=== PATIENT | female | born 1970 | race Caucasian/White ===

== ENCOUNTER 2020-12-18 18:54 | Inpatient (IN) | payer OTHER ==
[~2020-12-18] VITALS: Ht 162.6 cm; Wt 122.5 kg
[2020-12-18 19:14] VITALS: BP 155/100
[2020-12-18] MEDS ORDERED: LISINOPRIL10 MG PO (19:18)
[2020-12-18] MEDS ORDERED: METFORMIN HCL500 M3 PO (19:18)
[2020-12-18] MEDS ORDERED: WELLBUTRIN 100100 MG PO (19:19)
[2020-12-18] MEDS ORDERED: SERTRALINE HCL100 MG PO (19:19)
[2020-12-18] MEDS ORDERED: ADDERALL 10 MG10 MG PO (19:19)
[2020-12-18 21:50] LABS: HEMATOCRIT 45.6 % (37.0-47.0); HEMOGLOBIN 15.4 gm/dL (12.0-15.0); MCH 29.4 pg (26.0-34.0); MCHC 33.9 g/dL (28.0-37.0); MCV 86.8 fL (80.0-100.0); MPV 9.1 fl. (7.2-11.1); NUCLEATED RBCS 0 /100WBC; PLATELET COUNT* 174 thou/uL (150-400); RBC 5.25 mil/uL (4.20-5.00); RDW-CV 15.3 % (10.5-14.5); WBC 19.2 thou/uL (4.0-11.0)
[2020-12-18 22:00] LABS: CALCIUM 9.2 mg/dL (8.5-10.1); CREATININE 1.4 mg/dL (0.6-1.3); POTASSIUM 3.7 mmol/L (3.5-5.1)
[2020-12-18 22:06] LABS: ALBUMIN 3.9 g/dL (3.4-5.0); TOTAL BILIRUBIN 0.8 mg/dL (<0.1-1.0); TOTAL PROTEIN 8.2 g/dL (6.4-8.2)
[2020-12-18 22:07] LABS: URINE BILIRUBIN NEGATIVE (Negative); URINE BLOOD 3+ (Negative); URINE CLARITY CLEAR; URINE COLOR YELLOW; URINE GLUCOSE-RANDOM TRACE (Negative); URINE KETONES NEGATIVE (Negative); URINE LEUKOCYTES-REFLEX 1+ (Negative); URINE NITRITE-REFLEX NEGATIVE (Negative); URINE PROTEIN 1+ (Negative); URINE SPECIFIC GRAVITY >= 1.030 (1.005-1.030); URINE UROBILINOGEN 0.2 E.U./dl (0.2-1.0)
[2020-12-18 22:20] LABS: SQUAMOUS >10 Many /LPF (0-3); URINE WBC-REFLEX 6-15 Few /HPF (0-5)
[2020-12-18 22:21] LABS: BACTERIA-REFLEX 1-9 Few /HPF (None Seen); CASTS None Seen /LPF (None Seen); CRYSTALS None Seen /LPF (None Seen); URINE RBC 3-10 Few /HPF (0-2)
[2020-12-18 22:40] LABS: ABSOLUTE LYMPHOCYTES 1.9 thou/uL (0.8-5.3); ABSOLUTE MONOCYTES 0.4 thou/uL (0.0-1.2); ABSOLUTE NEUTROPHILS 16.9 thou/uL (1.6-8.1); PLATELET ESTIMATE ADEQUATE
[2020-12-19] VITALS (43 sets, daily range): BP systolic 78–147; BP diastolic 32–85
--- NOTE | 2020-12-19 08:01 | NUR ---
PATIENT ARRIVED ON FLOOR FROM ER ABOUT 0630. PATIENT ADMISSION HISTORY AND ASSESSMENT WERE COMPLETED DOWN IN THE ER. PATIENT HAD A CRITICAL LACTIC ACID OF 4.[address] TRAYLOR IN THE ER WAS NOTIFIED SINCE REGGIE HAD JUST ARRIVED ON THE FLOOR. FLUID BOLUS WAS STARTED. PACU CALLED AT ABOUT 0710 STATED THEY WERE COMING TO GET PATIENT FOR SURGEY STAT. PATIENT WAS TAKEN DOWN TO PACU AT ABOUT 0720. WILL CONTINUE TO MONITOR.
--- NOTE | 2020-12-19 09:54 | EKG ---
[place] [address] ELECTROCARDIOGRAM REPORT Name: VIRGINIE LAMBERT Room: [address] ADM IN M.R.#: [id number] Admission: 12/19/20 Attend Phys: Jr Hill Discharge: Date of : 70 Date of Service: 12/19/20 0514 Report #: [id number] THIS REPORT FOR: //name// [facility] ED Test Date: 2020-12-19 Test Time: 05:14:09 Pat Name: VIRGINIE LAMBERT Department: Room: [facility] Gender: F Class 1 Owner Operator: KELLE : 1970 Requested By: Susanna Grace Order Number: [id number] MD: Javier Francois Measurements Intervals [place] Rate: 127 P: 11 ME: 107 QRS: 74 QRSD: 95 T: 18 QT: 326 QTc: 475 Interpretive Statements Sinus tachycardia Low voltage, precordial leads Abnormal R-wave progression, late transition No previous ECG available for comparison Electronically Signed On 12-19-2020 9:54:31 CDT by Javier Francois [email or web address] <ELECTRONICALLY SIGNED> By: Javier Francois MD, FACC 12/19/20 0954 3 Javier Francois MD, [facility] /EPI
--- NOTE | 2020-12-19 10:50 | NUR ---
PATIENT LEFT FOR SURGERY BEFORE I ASSUMED CARE AND WAS UNABLE TO COMPLETE AN ASSESMENT.
--- NOTE | 2020-12-19 10:57 | NUR ---
CALL OUT TO OR SENIOR SYSTEM OPERATOR FOR CONDITION CHANGE UPDAT STATUS
--- NOTE | 2020-12-19 14:05 | NUR ---
RIGHT BASILIC VESSEL ACCESSED FOR 5 ESTONIAN TRIPLE LUMEN PICC. LINE PRE-TRIMMED TO 41CM AND ADVANCED TO THE ZERO AMRK WITH NO RESISTANCE MET. UPPER ARM CIRCUMFERENCE ABOVE INSERTION SITE= 12 ". SHERLOCK MAGNET AND 3CG CONFIRMATION OF TIP TERMINATION AT THE CAVOATRIAL JUNCTION APPRECIATED. GUIDEWIRE REMOVED, LINE FLUSHED AND INSERTION SITE DRESSED. REPORT GIVEN TO YULI VOGEL OF PACU [facility].
--- NOTE | 2020-12-19 19:48 | NUR ---
PT RECEIVED FROM PACU AT 1245, A&O x4. DENIES PAIN OR NAUSEA. ROSALINDA GTT CONTD AND TITRATED PER PROTOCOL. VSS. TOLERATED DIET.
[2020-12-20] VITALS (34 sets, daily range): BP systolic 103–156; BP diastolic 56–91
[2020-12-20 10:02] LABS: ABSOLUTE BASOPHILS 0.1 thou/uL (0.0-0.2); ABSOLUTE EOSINOPHILS 0.1 thou/uL (0.0-0.7); ABSOLUTE LYMPHOCYTES 0.6 thou/uL (0.8-5.3); ABSOLUTE NEUTROPHILS 24.2 thou/uL (1.6-8.1); BASOPHILS 0.3 %; EOSINOPHILS 0.2 %; HEMATOCRIT 36.7 % (37.0-47.0); LYMPHOCYTES 2.2 %; MCH 28.8 pg (26.0-34.0); MCHC 32.9 g/dL (28.0-37.0); MCV 87.6 fL (80.0-100.0); MONOCYTES 3.9 %; MPV 9.7 fl. (7.2-11.1); NUCLEATED RBCS 0 /100WBC; PLATELET COUNT* 139 thou/uL (150-400); POLYS 93.4 %; RBC 4.19 mil/uL (4.20-5.00); RDW-CV 15.8 % (10.5-14.5); WBC 25.9 thou/uL (4.0-11.0)
[2020-12-20 10:04] LABS: HEMOGLOBIN 12.1 gm/dL (12.0-15.0)
[2020-12-20 10:08] LABS: CALCIUM 7.8 mg/dL (8.5-10.1); CREATININE 1.2 mg/dL (0.6-1.3); POTASSIUM 3.7 mmol/L (3.5-5.1)
--- NOTE | 2020-12-20 13:38 | NUR ---
1330: Report called to mill oiler, pt being prepared for transfer to [facility]
--- NOTE | 2020-12-20 14:25 | NUR ---
Met with patient at bedside and introduced role of CM. Patient admitted for UTI, uretral stone and tachycardia. Patient currently on O2 support due to patient desating while sleeping. Patient has been falling asleep on and off today. Prior to admission, patient was independent with ADLS, working and driving. Patient stated that within the last 6-7 months she has not had to use her cane. Was using cane due to leg pain. Patient lives in a house with 10-12 stairs leading in from garage. Lives with spouse and 2 adult children. No hx of O2, bipap, cpap, dialysis, infusion therapy, HH or SNF/Rehab. Patient currently sees an SURVEYOR INSTRUMENT ASSISTANT at [facility] for PCP needs but patient does not recall the providers name. Patient currently sees Dr. Jose Viera (psychiatrist/[place], [place]) for adderall needs. Goal is for patient to return home at discharge. May need O2 setup at discharge. CM to continue to follow
--- NOTE | 2020-12-20 15:17 | NUR ---
1410: PATIENT TRANSFERED TO FLOOR VIA WHEELCHAIR ACCOMPANIED BY NURSING STUDENTS AND INSTRUCTOR. PATIENT ORIENTED TO FLOOR AND ROOM. PICC TO RIGHT UPPER ARM, TRIPLE LUMEN WITH NORMAL SALINE INFUSING AT 100. DRESING C/D/I. ALERT AND ORIENTED X4. ALL QUESTIONS AND CONCERNS ADDRESSED.
--- NOTE | 2020-12-20 18:16 | NUR ---
PATIENT RESTING IN BED. C/O HEADACH. MORPHINE GIVEN X1. PICC TO RIGHT UPPER ARM, TRIPLE LUMEN WITH NORMAL SALINE INFUSING AT 100ML/HR. +1 GENERAL NONPITTING EDEMA. PORTILLO SECURELY IN PLACE, TO DEPENDENT DRAINAGE. ROOM AIR DURING THE DAY. 2L NASAL CANNULA AT NIGHT. C/O BEING DROWSY. BLOOD SUGARS MONITORED. INSULING GIVEN ORDERED. CALL LIGHT WITHIN REACH. ALL QUESTIONS AND CONCERNS ADDRESSED.
[2020-12-21] VITALS: BP 155/74
[2020-12-21 04:00] VITALS: BP 141/84
[2020-12-21 04:42] LABS: HEMOGLOBIN 11.9 gm/dL (12.0-15.0); MPV 9.7 fl. (7.2-11.1); NUCLEATED RBCS 0 /100WBC
[2020-12-21 04:44] LABS: ABSOLUTE BASOPHILS 0.1 thou/uL (0.0-0.2); ABSOLUTE EOSINOPHILS 0.1 thou/uL (0.0-0.7); ABSOLUTE LYMPHOCYTES 0.7 thou/uL (0.8-5.3); ABSOLUTE MONOCYTES 0.9 thou/uL (0.0-1.2); BASOPHILS 0.3 %; EOSINOPHILS 0.8 %; HEMATOCRIT 35.8 % (37.0-47.0); LYMPHOCYTES 3.8 %; MCH 29.1 pg (26.0-34.0); MCHC 33.2 g/dL (28.0-37.0); MCV 87.7 fL (80.0-100.0); MONOCYTES 4.7 %; PLATELET COUNT* 126 thou/uL (150-400); POLYS 90.4 %; RBC 4.08 mil/uL (4.20-5.00); RDW-CV 15.5 % (10.5-14.5); WBC 18.8 thou/uL (4.0-11.0)
[2020-12-21 04:50] LABS: CALCIUM 7.9 mg/dL (8.5-10.1); CREATININE 0.8 mg/dL (0.6-1.3); POTASSIUM 3.7 mmol/L (3.5-5.1)
[2020-12-21 08:00] VITALS: BP 136/83
[2020-12-21 12:00] VITALS: BP 150/97
--- NOTE | 2020-12-21 13:22 | NUR ---
Anticipate dc in a few days. M/s status. Pending cultures. Pt may need o2 at dc, CM following.
[2020-12-21 16:00] VITALS: BP 145/78
--- NOTE | 2020-12-21 18:05 | NUR ---
PT PROGRESSING TOWARDS DC GOALS. PT WHEN VOIDING HAS SOME BURNING AND SPASMS, ORDERS RECIEVED. PT TAKING PO HYDROCODONE FOR PAIN CONTROL. WILL CONTINUE TO MONITOR PLAN OF CARE. PT HAS A TRIPLE LUMEN PICC LINE IN RIGHT UPPER ARM ALL LUMENS FLUSH WELL. DRESSING C/D/I. PORTILLO DISCONTINUED TODAY AND PT HAS VOIDED SEVERAL TIMES.
[2020-12-21 20:00] VITALS: BP 120/63
--- NOTE | 2020-12-21 20:00 | NUR ---
RECEIVED REPORT AND ASSUMED CARE OF PT, ASSESSMENT COMPLETED. PT ANXIOUS AND HAVING LT FLANK PAIN. REASSURANCE GIVEN. PT VOIDING WITHOUT DIFFICULTY, BRIEFS ON PER HER REQUEST DUE TO URGENCY. WILL CONT TO MONITOR AND ASSIST NEEDED.
--- NOTE | 2020-12-22 06:30 | NUR ---
SLEPT WELL. STATES HAVING SOME PAIN WITH BURNING AT THE END OF URINATING. UNABLE TO ASPIRATE FROM PICC PORTS X3, CATHFLO INSTILL AND EFFECTIVE. HS GOALS OF REST AND SAFETY ACHIEVED. HOURLY ROUNDING OBSERVED.
[2020-12-22 07:45] VITALS: BP 165/93
[2020-12-22 08:16] LABS: HEMATOCRIT 35.9 % (37.0-47.0); HEMOGLOBIN 11.8 gm/dL (12.0-15.0); MCH 28.6 pg (26.0-34.0); MCHC 32.9 g/dL (28.0-37.0); MCV 86.8 fL (80.0-100.0); MPV 9.5 fl. (7.2-11.1); NUCLEATED RBCS 0 /100WBC; PLATELET COUNT* 127 thou/uL (150-400); RBC 4.14 mil/uL (4.20-5.00); RDW-CV 14.8 % (10.5-14.5); WBC 12.4 thou/uL (4.0-11.0)
[2020-12-22 08:29] LABS: ALBUMIN 2.5 g/dL (3.4-5.0); CALCIUM 8.1 mg/dL (8.5-10.1); CREATININE 0.9 mg/dL (0.6-1.3); POTASSIUM 3.6 mmol/L (3.5-5.1); TOTAL BILIRUBIN 0.4 mg/dL (<0.1-1.0); TOTAL PROTEIN 6.3 g/dL (6.4-8.2)
[2020-12-22 09:11] LABS: ABSOLUTE BASOPHILS 0.1 thou/uL (0.0-0.2); ABSOLUTE EOSINOPHILS 0.1 thou/uL (0.0-0.7); ABSOLUTE LYMPHOCYTES 0.7 thou/uL (0.8-5.3); ABSOLUTE MONOCYTES 0.5 thou/uL (0.0-1.2); ABSOLUTE NEUTROPHILS 10.9 thou/uL (1.6-8.1); PLATELET ESTIMATE DECREASED
[2020-12-22 09:12] LABS: HYPOCHROMASIA Occasional
--- NOTE | 2020-12-22 11:58 | NUR ---
Anticipate dc tomorrow. Pt continues to complain of pain, Urology to see. No needs anticipated at dc. Pt off o2.
[2020-12-22] MEDS ORDERED: CIPRO500 M1 PO (12:56)
--- NOTE | 2020-12-22 14:38 | NUR ---
Nutrition: Pt admitted with urolithiasis. Assessed for high BMI. Wt: 270#. H/o DM, HTN. BG 130s, alb 2.5. CHO controlled diet ordered. No nutrition concerns at this time. Pt to discharge tomorrow. Assessed at low nutrition risk.
[2020-12-22 15:35] VITALS: BP 153/73
[2020-12-22 16:00] VITALS: BP 139/87
[2020-12-22 19:28] VITALS: BP 115/63
[2020-12-23 04:00] VITALS: BP 133/75
--- NOTE | 2020-12-23 05:17 | NUR ---
ASSUMED CARE OF PT 12/22/20 AT APPROX 1915. PT A&OX4, VSS ON ROOM AIR, IV FLUIDS INFUSING ORDERED, PT UP AD MARISOL. PRN PAIN MEDS REQUESTED AND GIVEN ORDERED. REPORT GIVEN TO NURSE AT 0424 AND PT TRANSFERED TO AT APPROX 0500.
[2020-12-23] MEDS ORDERED: PHENAZOPYRIDIN100 M1 PO (08:28)
--- NOTE | 2020-12-23 12:53 | OP ---
[address] [address] OPERATIVE REPORT Name: VIRGINIE LAMBERT Room: [address] IN M.R.#: [id number] Admission: 12/19/20 Attend Phys: Satish Sandy Discharge: Date of : 70 Report #: [id number] THIS REPORT FOR: cc: FAM - No family physician/PCP FAM - No family physician/PCP Marvin Osborn MD ~ DATE OF SURGERY: 12/19/2020 PREOPERATIVE DIAGNOSIS: Left hydronephrosis, flank pain, ureteropelvic junction calculus, diabetes, sepsis, morbid obesity. POSTOPERATIVE DIAGNOSIS: Left hydronephrosis, flank pain, UPJ calculus, diabetes, sepsis, morbid obesity, left pyonephrosis. PROCEDURE: Cystoscopy with left double-J stent. SURGEON: Dr. Osborn. ANESTHESIA: General. COMPLICATIONS: None. DRAINS: Left 7 x 26 double-J stent. FINDINGS: Left pyonephrosis. HISTORY: This is a 50-year-old diabetic female with morbid obesity who presents with ureteral stone to the hospital with flank pain, less than 24 hours. After she was sent to the floor, she developed tachycardia, elevated lactic acid. She had a white count of 20,000 and elevated creatinine of 1.4 and appeared to be getting septic. I reviewed her chart and talked to the emergency room physician and sent her down to the operating room for emergent stent placement. Risks, benefits, expected outcomes and alternatives explained to the patient and informed consent was given. DESCRIPTION OF PROCEDURE: She was taken back to the operating room and given preoperative antibiotics and general anesthetic, prepped and draped in standard sterile fashion in dorsal lithotomy position on the operating table. Surgical timeout was performed. Upon inspection, the urethra with 22-Slovak cystoscope was normal. Upon inspection of the bladder, it was normal as well. I sent a urine culture from the bladder. I placed an open-ended catheter in the ureter, did fluoroscopy and could see retained contrast from her contrasted CT scan and her kidney just nothing given by the UPJ. I was able to obtain access to the kidney with a sensor wire and then over that sensor wire passed an open[place] [address] OPERATIVE REPORT Name: VIRGINIE LAMBERT Room: [address] IN [facility].#: [id number] Admission: 12/19/20 Attend Phys: Satish Sandy Discharge: Date of : 70 Report #: [id number] aspirated the kidney and drained what appeared to be like chocolate milk out of the kidney and sent it off for culture. I was then able to opacify the collecting system, measured out ureteral length to be 26 cm and passed a 7 x 26 double-J stent with a nice coil seen in renal pelvis and bladder. The bladder was drained. Mckeon catheter, 18-Slovak was placed. She had some respiratory issues at the end of the case, was intubated and will probably be going to the ICU. <ELECTRONICALLY SIGNED> By: Marvin Osborn MD 12/23/20 1253 [id number] Osborn MD /nt
[2020-12-23] MEDS ORDERED: NORCO5 PO (14:17)
[2020-12-23 14:53] VITALS: BP 133/75
--- NOTE | 2020-12-23 16:54 | NUR ---
PATIENT VERBALIZED UNDERSTANDING OF DISCHARGE INSTRUCTIONS. PICC LINE D/C WITHOUT DIFFICULTY. PAIN CONTROLED WITH PO PAIN MEDICATION. URINE ORANGE DUE TO MEDICATION. PATIENT INSTRUCTED TO FOLLOW UP WITH UROLOGY DR FOR STENT REMOVAL AND STONE EXTRACTION. RX CALL TO PHARMACY BY
--- NOTE | 2020-12-23 18:03 | NUR ---
RX FOUND FOR OXYBUTYN LEFT ON CHART. LEFT MESSAGE AT PHARMACY FOR RX. PATIENT CALLED AND NOTIFIED.
== END 2020-12-23 15:45 | disposition home or self-care (01) | DRG 853 ==
LOC: M.ERS 18:54 → M.2W 12-19 00:54 → M.TBA-ER 12-19 00:54 → M.ICU 12-19 00:54 → M.TBA-ER 12-19 05:33 → M.2W 12-19 06:30 → M.ICU 12-19 11:01 → M.2W 12-20 14:21 → M.3W 12-23 05:00
PROVIDERS: Emergency Medicine; Internal Medicine; Nurse Practitioner Family; Physician Assistant; ADMIT Internal Medicine; ATTEND Internal Medicine
PROC: 02HV33Z Insertion of Infusion Device into Superior Vena Cava, Percutaneous Approach (ICD-10-PCS; principal; 2020-12-19)
PROC: 0T778DZ Dilation of Left Ureter with Intraluminal Device, Via Natural or Artificial Opening Endoscopic (ICD-10-PCS; principal; 2020-12-19)
PROC: B548ZZA Ultrasonography of Superior Vena Cava, Guidance (ICD-10-PCS; principal; 2020-12-19)
DX: A41.51 Sepsis due to Escherichia coli [E. coli] (principal); N17.0 Acute kidney failure with tubular necrosis; R65.21 Severe sepsis with septic shock; N13.2 Hydronephrosis with renal and ureteral calculous obstruction; Z68.42 Body mass index [BMI] 45.0-49.9, adult; E11.9 Type 2 diabetes mellitus without complications; I10 Essential (primary) hypertension; F32.9 Major depressive disorder, single episode, unspecified; F42.9 Obsessive-compulsive disorder, unspecified; E66.01 Morbid (severe) obesity due to excess calories; Z20.822 Contact with and (suspected) exposure to COVID-19; Z91.041 Radiographic dye allergy status; Z88.0 Allergy status to penicillin; Z86.718 Personal history of other venous thrombosis and embolism